=== PATIENT | female | born 1980 | race Two or more races ===

== ENCOUNTER 2018-07-10 07:21 | Emergency (ER) | payer OTHER ==
[~2018-07-10] VITALS: Ht 157.5 cm; Wt 71.7 kg
[~2018-07-10 07:21] MED LIST: ANTICONCEPTIVO; CLEOCIN HCL300 MG PO; INTESTINEX1 CAP PO; RELAGESIC TABL1 EACH PO
[2018-07-10] MEDS ORDERED: DIAZEPAM10 MG PO (08:58)
[2018-07-10] MEDS ORDERED: NEURONTIN300 MG PO (08:58)
== END 2018-07-10 09:21 | disposition home or self-care (01) ==
LOC: ER 07:21
DX: M54.32 Sciatica, left side (principal)

== ENCOUNTER 2019-03-16 05:51 | Emergency (ER) | payer OTHER ==
[~2019-03-16] VITALS: Ht 157.5 cm; Wt 68.0 kg
[~2019-03-16 05:51] MED LIST changes: +DIAZEPAM10 MG PO; +NEURONTIN300 MG PO
[2019-03-16] MEDS ORDERED: BENADYL (06:10)
== END 2019-03-16 10:22 | disposition home or self-care (01) ==
LOC: ER 05:51
DX: B34.9 Viral infection, unspecified (principal); R07.0 Pain in throat

== ENCOUNTER 2019-03-17 14:42 | Emergency (ER) | payer OTHER ==
[~2019-03-17] VITALS: Ht 167.6 cm; Wt 65.8 kg
[~2019-03-17 14:42] MED LIST changes: +BENADYL
== END 2019-03-17 16:37 | disposition home or self-care (01) ==
LOC: ER
DX: J31.2 Chronic pharyngitis (principal)

== ENCOUNTER 2022-03-26 21:32 | Emergency (ER) | payer OTHER ==
[~2022-03-26] VITALS: Ht 170.2 cm; Wt 86.2 kg
[2022-03-27] MEDS ORDERED: PERCOCET 5-3251 EACH PO (03:12)
== END 2022-03-27 04:19 ==
LOC: ER 21:32
DX: S92.511A Displaced fracture of proximal phalanx of right lesser toe(s), initial encounter for closed fracture (principal); W18.41XA Slipping, tripping and stumbling without falling due to stepping on object, initial encounter; Y93.9 Activity, unspecified; Y92.9 Unspecified place or not applicable; Y99.9 Unspecified external cause status

== ENCOUNTER 2025-04-29 17:37 | Emergency (ER) | payer OTHER ==
[~2025-04-29] VITALS: Ht 157.5 cm; Wt 73.5 kg
[~2025-04-29 17:37] MED LIST changes: +PERCOCET 5-3251 EACH PO
[2025-04-29] MEDS ORDERED: FAMOTIDINE40 MG PO (17:52)
[2025-04-29 18:35] LABS: BASO % 0.4 % (0.1-1.2); EOS # 0.11 (0.04-0.54); EOS % 1.0 % (0.7-7.0); LYMPH # 3.75 (1.18-3.74); LYMPH % 33.0 % (19.3-53.1); MEAN PLATELET VOLUME 9.80 fl (9.4-12.4); MONO # 0.66 (0.24-0.82); MONO % 5.8 % (4.7-12.5); NEUT # 6.77 (1.56-6.13); NEUT % 59.5 % (34.0-71.1); RED CELL DISTRIBUTION WIDTH 14.3 % (11.6-14.4)
[2025-04-29 19:01] LABS: BUN CREA RATIO 18.0 (7.0-25.0); CREATININE SERUM 0.89 mg/dL (0.55-1.02); GFR 69.22; GLUCOSE FASTING 99.0 mg/dL (65-100); OSMOLALITY SERUM 281.0 MOSM/KG (275-295)
[2025-04-29 20:41] LABS: URINE APPEARANCE Clear; URINE BILIRRUBIN Negative (NEGATIVE); URINE BLOOD Trace; URINE COLOR Yellow; URINE GLUCOSE Negative (NEGATIVE); URINE KETONE Negative (NEGATIVE); URINE LEUKOCYTE Negative; URINE NITRATE Negative; URINE PROTEIN Negative (NEGATIVE); URINE UROBILINOGEN 0.2 E.U./dl
[2025-04-29 20:44] LABS: URINE BACTERIA 473.9 uL (0.0-1933); URINE EPITHELIAL CELLS 25.0 uL (0.0-38.8); URINE WBC 25.0 uL (0.0-23.2)
[2025-04-29 20:54] LABS: URINE CAST 0.14 uL (0.0-1.40); URINE RBC 1.4 uL (0.0-20.8)
== END 2025-04-30 00:06 | disposition home or self-care (01) ==
LOC: ER 17:37
PROVIDERS: Emergency Medicine
DX: R10.32 Left lower quadrant pain (principal); K57.30 Diverticulosis of large intestine without perforation or abscess without bleeding; K59.00 Constipation, unspecified; N20.0 Calculus of kidney; Z88.8 Allergy status to other drugs, medicaments and biological substances